=== PATIENT | female | born 1960 | race Caucasian/White ===

== ENCOUNTER 2017-01-20 07:46 | Outpatient (CLI) | payer OTHER ==
[2017-01-20 09:13] LABS: BASOPHILS % (AUTO) 0.7 % (0.0-2.0); EOSINOPHILS # (AUTO) 0.3 K/uL (0.0-0.4); EOSINOPHILS % (AUTO) 3.6 % (0.0-4.0); HEMATOCRIT 43.4 % (36-48); HEMOGLOBIN 14.5 g/dL (12.0-16.0); LYMPHOCYTES # (AUTO) 1.9 K/uL (1.0-5.5); LYMPHOCYTES % (AUTO) 26.1 % (20.5-51.5); MEAN CORPUSCULAR HEMOGLOBIN 28 pg (27-31); MEAN CORPUSCULAR HGB CONC 33 % (32-36); MEAN CORPUSCULAR VOLUME 83 fL (79.0-98.0); MONOCYTES # (AUTO) 0.4 K/uL (0.0-1.0); MONOCYTES % (AUTO) 5.4 % (1.7-9.3); NEUTROPHILS # (AUTO) 4.5 K/uL (1.8-7.7); NEUTROPHILS % (AUTO) 64.2 % (40.0-70.0); PLATELET COUNT (AUTO) 222 K/uL (130-430); RED BLOOD CELL COUNT(AUTO) 5.22 MIL/uL (4.2-6.2); RED CELL DISTRIBUTION WIDTH 11.9 % (9.0-15.0); WHITE BLOOD COUNT (AUTO) 7.1 K/uL (4.8-10.8)
[2017-01-20 09:22] LABS: BILIRUBIN,URINE NEGATIVE (NEGATIVE); BLOOD, URINE NEGATIVE (NEGATIVE); CLARITY/URINE CLEAR (CLEAR); COLOR,URINE YELLOW (YELLOW); GLUCOSE,URINE NEGATIVE (NEGATIVE); KETONES,URINE NEGATIVE (NEGATIVE); LEUKOCYTE ESTERASE ,URINE NEGATIVE (NEGATIVE); NITRITE, URINE NEGATIVE (NEGATIVE); PROTEIN URINE NEGATIVE (NEGATIVE); UROBILINOGEN,URINE 0.2 (0.2-1.0)
[2017-01-20 09:33] LABS: BILIRUBIN,DIRECT 0.2 mg/dL (0.0-0.3); CALCIUM 9.2 mg/dL (8.4-11.0); POTASSIUM 3.4 mmol/L (3.5-5.1); TOTAL BILIRUBIN 0.9 mg/dL (0.0-1.0); TOTAL PROTEIN, SERUM 7.9 g/dL (6.4-8.3); URIC ACID 3.6 mg/dL (2.4-7.0)
[2017-01-20 09:57] LABS: IRON (SERUM) 137 mcg/dL (37-145); TOTAL IRON BIND. CAPACITY 339 ug/dL (250-450)
[2017-01-20 10:06] LABS: ERYTHROCYTE SEDIMENTATION RATE 11 MM/HR (0-20)
[2017-01-20 10:39] LABS: CREATININE 0.81 mg/dL (0.55-1.30)
[2017-01-20 10:40] LABS: FREE T4 (FREE THYROXINE) 1.2 ng/dL (0.6-1.6); THYROID STIMULATING HORMONE 0.87 uIu/mL (0.34-4.82)
[2017-01-21 06:07] LABS: T4 (THYROXINE) 10.4 ug/dL (4.5-12.0)
[2017-01-21 08:06] LABS: T3 UPTAKE 28 % (24-39)
[2017-01-21 11:07] LABS: RA LATEX TURBID <10.0 IU/mL (0.0-13.9)
[2017-01-21 13:53] LABS: HEMOGLOBIN A1C 5.9 % (4.8-5.6)
== END 2017-01-20 19:25 | disposition home or self-care (01) ==
LOC: SMA 07:46 → MERGE 07:46 → SMA 19:25
PROVIDERS: ATTEND Family Medicine
DX: Z12.31 Encounter for screening mammogram for malignant neoplasm of breast (principal); I10 Essential (primary) hypertension; E78.5 Hyperlipidemia, unspecified
CPT/HCPCS: 36415; 77067; 80053; 80061; 81003; 82248; 82550; 82607; 83036; 83540; 83550; 84436; 84439; 84443; 84479; 84550; 85025; 85651; 86431; G0202